=== PATIENT | female | born 1960 | race American Indian/Alaskan Native ===

== ENCOUNTER 2017-04-11 10:03 | Emergency (ER) | payer SELFPAY ==
[2017-04-11 10:41] LABS: Basophils # (Auto) 0.1 K/mm3 (0.0-0.1); Basophils % (Auto) 0.9 % (0.0-1.8); Eosinophils % (Auto) 0.1 % (0.0-4.3); Hematocrit 49.1 % (30.3-42.9); Hemoglobin 16.7 gm/dl (10.1-14.3); Lymphocytes # (Auto) 1.7 K/mm3 (1.2-5.4); Lymphocytes % (Auto) 12.4 % (13.4-35.0); Mean Corpuscular HGB Conc 34 % (30-34); Mean Corpuscular Hemoglobin 34 pg (28-32); Mean Corpuscular Volume 101 fl (79-97); Monocytes # (Auto) 0.8 K/mm3 (0.0-0.8); Monocytes % (Auto) 5.5 % (0.0-7.3); Platelet Count 297 K/mm3 (140-440); Red Blood Count 4.87 M/mm3 (3.65-5.03); Red Cell Distribution Width 14.2 % (13.2-15.2)
[2017-04-11 10:59] LABS: Alanine Aminotransferase 51 units/L (7-56); Albumin 4.6 g/dL (3.9-5); BUN/Creatinine Ratio 15; Blood Urea Nitrogen 12 mg/dL (7-17); Hemolysis Index 19
[2017-04-11] MEDS ORDERED: NACL 0.9% 1000 ML 1,000 ML IV ONE (12:16)
[2017-04-11] MEDS ORDERED: APRESOLINE IV ONE (12:16)
[2017-04-11 12:40] VITALS: BP 166/99
--- NOTE | 2017-04-11 13:03 | Emergency Department Report ---
Chief Complaint: Abdominal Pain Stated Complaint: FLU LIKE SYMPTOMS Time Seen by Provider: 04/11/17 12:12 - HPI History of Present Illness: The patient is a 57-year-old female who presents for evaluation of abdominal pain and GI symptoms. The patient reports abdominal pain for the past 2 days, mild, crampy in quality, and associated with nausea and multiple episodes of nonbilious, nonbloody emesis, and loose watery stools. The patient denies trauma to the abdomen, chest pain, dyspnea, blood in the stools, black tarry stools, recent antibiotic use, travel outside the country, exposure to raw or uncooked seafood, reheated foods, untreated water, unpasteurized dairy, or reptilian pets including lizards, frogs, or snakes. - Exam Vital Signs: Vital Signs 04/11/17 04/11/17 10:09 12:40 Temperature 97.9 F Pulse Rate 90 107 H Respiratory 16 Rate Blood Pressure 185/105 166/99 O2 Sat by Pulse 99 Oximetry MSE screening note: Focused history and physical exam performed. Due to findings the following was ordered: Labs and medications for the patient's symptoms is order. ED Medical Decision Making - Lab Data Result diagrams: 04/11/17 10:22 04/11/17 10:22 ED Disposition for MSE Condition: Stable Instructions: Abdominal Pain (ED) Referrals: PRIMARY CARE, [Primary Care Provider] - 3-5 Days
--- NOTE | 2017-04-11 13:15 | Emergency Department Report ---
Vomiting/Diarrhea - HPI Chief Complaint: Abdominal Pain Stated Complaint: FLU LIKE SYMPTOMS Time Seen by Provider: 04/11/17 12:12 Duration: 2 Days Severity: moderate Nausea/Vomiting Severity: Moderate Diarrhea Severity: Moderate Pain Location: Generalized Pain Severity: Moderate Symptoms: Yes Watery Diarrhea, Yes Able to Tolerate Fluids, No Bloody diarrhea, No Fever, No Recent Unusual Foods, No Recent Untreated Water, No Recent use of Antibiotics, No Family w/ Similar Symptoms, No Contacts w/ Similar Symptoms, No Rash, No Hematuria, No Recent URI Symptoms Other History: This is a 57 y.o. female that presents with abdominal pain with nausea and vomiting for 2 days. Patient states everything is coming out on both ends since Wednesday. She has not been around any sick contacts. She is taking ibuprofen for abdominal pain with no improvement. History of GERD. Denies recent travel, tarry stools, cough, fever, and chest pain. ED Review of Systems ROS: Stated complaint: FLU LIKE SYMPTOMS Other details as noted in HPI Constitutional: denies: chills, fever Respiratory: denies: cough, orthopnea, shortness of breath, SOB with exertion, SOB at rest, stridor, wheezing Cardiovascular: denies: chest pain, palpitations Gastrointestinal: abdominal pain, nausea, vomiting, diarrhea. denies: constipation, hematemesis Neurological: denies: headache, weakness, paresthesias ED Past Medical Hx - Past Medical History Previous Medical History?: Yes Hx Diabetes: No Additional medical history: GERD - Surgical History Past Surgical History?: No - Social History Smoking Status: Current Every Day Smoker Substance Use Type: None - Medications Home Medications: Home Medications Medication Instructions Recorded Confirmed Last Taken Type Ciprofloxacin HCl [Cipro] 500 mg PO BID 7 Days #14 tablet 04/11/17 Unknown Rx Hydrochlorothiazide [Hctz] 12.5 mg PO QDAY #30 capsule 04/11/17 Unknown Rx Losartan [Cozaar] 12.5 mg PO QDAY #30 tablet 04/11/17 Unknown Rx Metoclopramide [Reglan] 10 mg PO TID PRN 5 Days #15 tab 04/11/17 Unknown Rx Vomiting Diarrhea Exam - Exam General: Vital signs noted. No distress. Alert and acting appropriately. HEENT: Yes Moist Mucous Membranes, No Pharyngeal Erythema, No Pharyngeal Exudates, No Rhinorrhea, No Conjuctival Injection, No Frontal Tenderness, No Maxillary Tenderness Neck: No Adenopathy, No Rigidity Lungs: Yes Clear Lung Sounds, Yes Good Air Exchange, No Wheezes, No Stridor, No Cough, No Nasal Flaring, No Retractions, No Use of Accessory Muscles Heart exam: Regular: Yes, Murmur: No, Tachycardia: No Abdomen: Tenderness: Yes (LUQ tenderness on palpation, no guarding or rebound pain), Peritoneal Signs: No, Distention: No, Hyperactive Bowel sounds: No Skin exam: Rash: No, Edema: No, Normal turgor: Yes Neurologic: Alert and oriented, no deficits. Musculoskeletal: Unremarkable. ED Course Vital Signs 04/11/17 04/11/17 10:09 12:40 Temperature 97.9 F Pulse Rate 90 107 H Respiratory 16 Rate Blood Pressure 185/105 166/99 O2 Sat by Pulse 99 Oximetry ED Medical Decision Making - Lab Data Result diagrams: 04/11/17 10:22 04/11/17 10:22 - Radiology Data Radiology results: image reviewed IMPRESSION: 1. Hepatic steatosis and otherwise normal abdomen. 2. Normal pelvis. - Medical Decision Making 57 y.o. female that presents with abdominal pain, nausea and vomiting for 2 days. Patient examined by me, slightly distressed. Blood pressure elevated. Given hydralazine 20 mg IV, normal saline IV 1L bolus. Vitals stable. CT of abdomen and pelvis obtained. Patient informed of Hepatic steatosis and otherwise normal abdomen. 2. Normal pelvis. Obtained CBC, UA, & CMP, WBC elevated. Start cipro and metoclopramide for gastroenteritist. Start HCTZ 12.5 mg po daily and losartan 25 mg po daily for elevated blood pressure. Patient doesn't have PCP. Referred to [facility]. Discharged home. Follow up with [facility] in 48-72 hours. Critical care attestation.: If time is entered above; I have spent that time in minutes in the direct care of this critically ill patient, excluding procedure time. ED Disposition Clinical Impression: Fatty liver, Acute gastroenteritis, Elevated blood-pressure reading without diagnosis of hypertension Disposition: - TO HOME OR SELFCARE Is pt being admited?: No Does the pt Need Aspirin: No Condition: Stable Instructions: Gastroenteritis (ED), Acute Nausea and Vomiting (ED), Abdominal Pain (ED), DASH Eating Plan (ED), Hypertension (ED) Additional Instructions: Increase fluid intake. Take ibuprofen or tylenol for pain. Complete cipro antibiotic as prescribed. Do not drink alcohol while taking antibiotic and 48 hours after completing cipro medication, may cause upset stomach. Follow up with [facility] in 24-72 hours for management of fatty liver and elevated blood pressure. Prescriptions: Ciprofloxacin HCl [Cipro] 500 mg PO BID 7 Days #14 tablet Hydrochlorothiazide [Hctz] 12.5 mg PO QDAY #30 capsule Losartan [Cozaar] 12.5 mg PO QDAY #30 tablet Metoclopramide [Reglan] 10 mg PO TID PRN 5 Days #15 tab PRN Reason: Nausea Referrals: [facility] [Outside] - 3-5 Days [facility] [Outside] - 3-5 Days Forms: Work/School Release Form(ED) Time of Disposition: 14:41 Print Language: ESTONIAN
--- NOTE | 2017-04-11 13:37 | Cat Scan Report ---
CT ABDOMEN AND PELVIS WITHOUT CONTRAST: 04/11/17 10:03:00 CLINICAL:Upper abdominal pain. Nausea and vomiting for 2 days. TECHNIQUE: Volumetric acquisition and 1.25 millimeter scan reconstructions from the lung bases through the pelvis. The study was performed without oral contrast. FINDINGS: Abdomen:Clear lung bases. The liver is diffusely hypodense and measures 18 Hounsfield units compared to 47 Hounsfield units the spleen. However, normal liver size and contour. The gallbladder and bile ducts are normal. Normal stomach, duodenum, pancreas and spleen. The small bowel is normal. Normal kidneys with nondilated renal collecting systems and ureters. No renal calculus, mass or cyst. Normal ascending, transverse and descending colon. The appendix is well limits of normal. No ascites and no pneumoperitoneum. Pelvis: Normal urinary bladder and uterus. Normal ovaries. Normal rectum and sigmoid colon. No adnexal mass or free fluid. IMPRESSION: 1. Hepatic steatosis and otherwise normal abdomen. 2. Normal pelvis.
[2017-04-11] MEDS ORDERED: ZOFRAN ODT PO ONE (13:56)
== END 2017-04-11 15:13 | disposition home or self-care (01) ==
LOC: ED 10:03
DX: K52.9 Noninfective gastroenteritis and colitis, unspecified (principal); K76.0 Fatty (change of) liver, not elsewhere classified; R03.0 Elevated blood-pressure reading, without diagnosis of hypertension; F17.200 Nicotine dependence, unspecified, uncomplicated
CPT/HCPCS: 36415; 74176; 80053; 85025; 93005; 93010; 96361; 96374; 99284; J0360; J7030; Q0162

== ENCOUNTER 2019-02-03 14:56 | Outpatient (CLI) | payer OTHER | END 2019-02-03 14:57 | disposition home or self-care (01) | LOC: LABHHL 14:56 | PROVIDERS: ATTEND Surgery | DX: N63.11 Unspecified lump in the right breast, upper outer quadrant (principal) | CPT/HCPCS: 88305; 88341; 88342 ==

== ENCOUNTER 2019-03-27 06:51 | Day surgery (SDC) | payer MEDICAID ==
[2019-03-23 10:56] LABS: Basophils # (Auto) 0.2 K/mm3 (0.0-0.1); Eosinophils # (Auto) 0.1 K/mm3 (0.0-0.4); Eosinophils % (Auto) 1.1 % (0.0-4.3); Hematocrit 43.3 % (30.3-42.9); Hemoglobin 14.6 gm/dl (10.1-14.3); Lymphocytes # (Auto) 2.3 K/mm3 (1.2-5.4); Lymphocytes % (Auto) 26.6 % (13.4-35.0); Mean Corpuscular HGB Conc 34 % (30-34); Mean Corpuscular Volume 99 fl (79-97); Monocytes # (Auto) 0.5 K/mm3 (0.0-0.8); Platelet Count 356 K/mm3 (140-440); Red Blood Count 4.37 M/mm3 (3.65-5.03); Red Cell Distribution Width 13.8 % (13.2-15.2)
--- NOTE | 2019-03-23 11:04 | Anesthesia Consultation ---
Anesthesia Consult and Med Hx Date of service: 03/27/19 - Airway Anesthetic Teeth Evaluation: Good ROM Head & Neck: Adequate Mental/Hyoid Distance: Adequate Mallampati Class: Class II Intubation Access Assessment: Good - Pulmonary Exam CTA: Yes - Cardiac Exam Cardiac Exam: RRR - Pre-Operative Health Status ASA Pre-Surgery Classification: ASA3 Proposed Anesthetic Plan: General Nerve Block: PEC - Pulmonary Hx Smoking: Yes (OFF/ON SINCE 20'S; DOWN TO 3CIG/DAY SINCE DX) - Cardiovascular System Hx Hypertension: Yes (PT DENIES; BP HAVE STEADILY BEEN ELEVATED; NO PCP) - Central Nervous System Hx Back Pain: Yes (LOWER RIGHT) Hx Psychiatric Problems: No - Other Systems Hx Alcohol Use: Yes (SOCIALLY) Hx Substance Use: Yes (MARIJUANA FOR PAIN- LAST USE JAN 2019) Hx Cancer: Yes
[2019-03-23 12:01] LABS: Alanine Aminotransferase 13 units/L (7-56); Albumin 4.4 g/dL (3.9-5); BUN/Creatinine Ratio 10; Blood Urea Nitrogen 10 mg/dL (7-17); Calcium 9.6 mg/dL (8.4-10.2); Hemolysis Index 14
[~2019-03-27 06:51] MED LIST: CELECOXIB 200 MG CAP PO NR; GABAPENTIN 300 MG CAP PO NR; LACTATED RINGERS 1,000 ML IV SCH; MIDAZOLAM 2 MG/2 ML INJ IV NR; ceFAZolin/Water 2 GM/20 ML 2 GM/20 ML SYRINGE IV NR
[2019-03-27] MEDS ORDERED: BACTERIOSTATIC SODIUM CHLORIDE 0.9% 30 ML VIAL INFILTRATI ONE (07:18)
--- NOTE | 2019-03-27 07:20 | Anesthesia Day of Surgery ---
Anesthesia Day of Surgery - Day of Surgery Patient Examined: Yes Patient H&P Reviewed: Yes Patient is NPO: Yes
[2019-03-27] MEDS ORDERED: LIDOCAINE (1%) 10 MG/1 ML VIAL 20 ML MDV ONE (07:52)
[2019-03-27] MEDS ORDERED: METHYLENE BLUE 50 MG/10 ML AMP ONE (08:24)
[2019-03-27] MEDS ORDERED: BUPIVACAINE/PF (0.25%) 2.5 MG/ML 30 ML VIAL INFILTRATI ONE (08:24)
[2019-03-27] MEDS ORDERED: LIDOCAINE 1%/EPINEPHRINE 1:100,000 VIAL (20 ML) INFILTRATI ONE (08:24)
[2019-03-27] MEDS ORDERED: SODIUM CHLORIDE P/F VIAL 10 ML 10 ML ONE (08:24)
[2019-03-27] MEDS ORDERED: fentaNYL 100 MCG/2 ML INJ IV ONE (08:46)
[2019-03-27] MEDS ORDERED: BUPIVACAINE-EPINEPHRINE/PF 0.5%-1:200,000 (30 ML) VIAL INFILTRATI ONE (08:47)
[2019-03-27] MEDS ORDERED: fentaNYL 100 MCG/2 ML INJ ONE ×2 (08:50→09:08)
[2019-03-27] MEDS ORDERED: LIDOCAINE MPF (2%) 20 MG/1 ML VIAL 5 ML ONE (09:06)
[2019-03-27] MEDS ORDERED: PROPOFOL 200 MG/20 ML VIAL IV ONE (09:06)
[2019-03-27] MEDS ORDERED: ROCURONIUM 50 MG/5 ML INJ IV ONE (09:07)
[2019-03-27] MEDS ORDERED: ONDANSETRON 4 MG/2 ML INJ ONE (09:50)
[2019-03-27] MEDS ORDERED: dexAMETHasone 20 MG/5 ML VIAL ONE (09:50)
[2019-03-27] MEDS ORDERED: HYDROmorphone 1 MG/1 ML INJ ONE (09:51)
[2019-03-27] MEDS ORDERED: WATER FOR IRRIG STERILE 1,500 ML BOTTLE IR ONE (10:14)
[2019-03-27] MEDS ORDERED: PHENYLEPHRINE/NS 1,000 MCG/10 ML SYRINGE (OR USE) IV ONE (10:56)
--- NOTE | 2019-03-27 12:41 | Mammography Report ---
MAMMOGRAPHIC GUIDANCE NEEDLE LOCALIZATION RIGHT BREAST CLINICAL: Right breast malignancy x2 FINDINGS: The right lower outer posterior breast mass was identified with an overlying grid. The skin was cleansed with ChloraPrep and local anesthesia was obtained with a 1% lidocaine solution. Needle was advanced to the mass and clip. A subsequent orthogonal view was obtained and a 7 cm Casillas wire was placed through the needle which was subsequently removed. In a similar manner, a 10 cm Casillas wi re was placed in the right upper outer breast mass and clip. Subsequent CC and ML projections were obtained. These were annotated and sent with the patient to the operating room. Patient tolerated the procedure well and no immediate complications were identified. Subsequent specimen radiographs (2) demonstrate the masses and biopsy markers located centrally withi n the specimens. IMPRESSION: Technically successful mammographically guided wire localization of two right breast malignancies. Signer Name: Holden Stoner MD Signed: 03/27/2019 12:37 PM Workstation Name: [id number]
--- NOTE | 2019-03-27 13:11 | Operative Report ---
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 Patient wanted to proceed with breast conservation and given her breast size, breast conservation was possible and patient understood 2 separate incisions may be needed. She understood if margins were positive, would then recommend proceeding with a total mastectomy. Radiology bracketed both areas of cancer of IDCA breast cancers. She understands the role of adjuvant radiation therapy and Oncotype DX will be obtained by medical oncology. She wished to proceed with the above procedure. Procedure in detail: The patient was taken to radiology for wire placement for localization known area of cancer. Anesthesia placed right pectoral block. Patient was then taken to the operating room. Gen. anesthesia was administered. The right nipple was injected with radioisotope. Right breast and axilla were prepped and draped in the normal sterile operative fashion. The wires were identified. Timeout was performed. Gamma probe was inserted into the axilla. The area of hot spot was identified. A right axillary incision was made with a 15 blade knife with dissection taken down to the subcutaneous tissues. The axillary fascia was opened with the Bovie cautery. 3 SLNs were identified. All remaining counts were less than 10% of the highest count. Lymph node was sent to pathology for permanent processing. Hemostasis was obtained in the right axillary cavity. Axillary cavity was appropriately irrigated and suctioned. Hemostasis was noted. Axillary fascia was approximated and closed using interrupted 3-0 Vicryl and the skin brought together and closed using a running 4-0 Monocryl followed by skin affix. Attention was then taken towards the right breast. Ultrasound was used to preeti the areas of incisions, 2 separate incisions needed given distance of both cancers. Lateral breast incision at the 7:00 position close to IMF was made with a 15 blade knife and dissection taken down to subcutaneous tissues (known cancer at 9:00 position 13 cm FN). First began raising of the superior flap with removal of the wire from the skin with dissection take down to the pectoralis muscle, followed by raising of the inferior flap, medial flap and lateral flap with all flaps taken down to the pectoralis muscle. The breast area of concern was appropriately removed posteriorly from the pectoralis muscle with the aid of the Bovie cautery. The wire was not encountered. Specimen was marked and then sent to pathology and radiology; radiograph specimen with wire and clip present. Breast cavity was irrigated and hemostasis was obtained. The posterior deep breast tissues were approximated and closed using interrupted 3-0 Vicryl. The subcutaneous tissues were approximated and closed using interrupted 3-0 Vicryl followed by closing of the skin with a running 4-0 Monocryl and skin affix. Attention was then taken towards cancer at 11:00 position 12 cm FN. A lateral breast incision at the 11:00 position was made with a 15 blade knife and dissection taken down to subcutaneous tissues. First began raising of the superior flap with dissection take down to the pectoralis muscle, followed by raising of the inferior flap, medial flap and lateral flap with all flaps taken down to the pectoralis muscle. The wire was removed laterally. The breast area of concern was appropriately removed posteriorly from the pectoralis muscle with the aid of the Bovie cautery. The wire was not encountered. Specimen was marked and then sent to pathology and radiology; radiograph specimen with wire and clip present. Breast cavity was irrigated and hemostasis was obtained. The posterior deep breast tissues were approximated and closed using interrupted 3-0 Vicryl. The subcutaneous tissues were approximated and closed using interrupted 3-0 Vicryl followed by closing of the skin with a running 4-0 Monocryl and skin affix. The patient tolerated surgery very well and she was awaken from anesthesia without any complication and transported to PACU in good condition.
--- NOTE | 2019-03-27 13:14 | Short Stay Summary ---
Short Stay Documentation Date of service: 03/27/19 - History H&P: obtained from office - Allergies and Medications Current Medications: Allergies No Known Allergies Allergy (Verified 03/22/19 10:38) Home Medications Medication Instructions Recorded Confirmed Last Taken Type Ibuprofen [Motrin] 800 mg PO Q8HR PRN 03/22/19 03/22/19 Unknown History HYDROcodone/APAP 5-325 [[place] 1 each PO Q6HR PRN #25 tablet 03/27/19 Unknown Rx 5/325] Active Medications Celecoxib (Celebrex) 200 mg PO PREOP NR Stop: 03/27/19 23:59 Last Admin: 03/27/19 07:10 Dose: 200 mg Documented by: Gabapentin (Gabapentin) 600 mg PO PREOP NR Stop: 03/27/19 23:59 Last Admin: 03/27/19 07:10 Dose: 600 mg Documented by: Cefazolin Sodium (Ancef/Sterile Water 2 Gm/20 Ml) 2 gm in 20 mls @ 80 mls/hr IV PREOP NR; Protocol Stop: 03/27/19 23:59 Lactated Ringer's (Lactated Ringers) 1,000 mls @ 100 mls/hr IV DIRECT HERBER Last Admin: 03/27/19 08:45 Dose: 100 mls/hr Documented by: Midazolam HCl (Versed) 2 mg IV PREOP NR Stop: 03/27/19 23:59 Last Admin: 03/27/19 08:47 Dose: 2 mg Documented by: - Brief post op/procedure progress note Date of procedure: 03/27/19 Pre-op diagnosis: Multicentric right breast cancer of upper outer quadrant Post-op diagnosis: same Procedure: Right needle localization partial mastectomy with SLNB Anesthesia: GETA Findings: Wires and clips present; x3 SLNs Surgeon: FER KLINE Estimated blood loss: minimal Pathology: list Specimen disposition: to lab Condition: stable - Disposition Condition at discharge: Good Disposition: DC-01 TO HOME OR SELFCARE Short Stay Discharge Plan Activity: other (no heavy lifting) Diet: regular Wound: keep clean and dry (may shower in 48 hours; no baths; wear breast binder) Follow up with: MARCEL FARIAS MD [Primary Care Provider] - 7 Days FER KLINE MD [Staff Physician] - 7 Days Prescriptions: HYDROcodone/APAP 5-325 [[place] 5/325] 1 each PO Q6HR PRN #25 tablet PRN Reason: Pain
[2019-03-27] MEDS ORDERED: HYDROcodone/ACETAMINOPHEN 5-325 MG TAB PO PRN (13:40)
[2019-03-27 14:12] VITALS: BP 152/77
--- NOTE | 2019-03-27 14:13 | Post Anesthesia Evaluation ---
- Post Anesthesia Evaluation Patient Participated: Yes Airway Patent: Yes Stable Respiratory Function: Yes Temp > 96.8F: Yes Pain Manageable: Yes Adequeate Hydration: Yes Anesthesia Complications: No
== END 2019-03-27 14:18 | disposition home or self-care (01) ==
LOC: OR 06:51
PROVIDERS: ATTEND Surgery
DX: C50.411 Malignant neoplasm of upper-outer quadrant of right female breast (principal); I89.8 Other specified noninfective disorders of lymphatic vessels and lymph nodes; F17.210 Nicotine dependence, cigarettes, uncomplicated; Z79.899 Other long term (current) drug therapy; Z98.41 Cataract extraction status, right eye; Z98.42 Cataract extraction status, left eye; I10 Essential (primary) hypertension; M19.90 Unspecified osteoarthritis, unspecified site; Z72.89 Other problems related to lifestyle; Z80.0 Family history of malignant neoplasm of digestive organs; Z80.42 Family history of malignant neoplasm of prostate
CPT/HCPCS: 19125; 19281; 19282; 19301; 36415; 38525; 38792; 76098; 78800; 80053; 85025; 88307; 88341; 88368; A9541; J0690; J1100; J1170; J2250; J2370; J2405; J2704; J3010; J7120; 64450; 88333; 88342; Q9968

== ENCOUNTER 2019-05-31 05:48 | Observation (INO) | payer MEDICAID ==
[~2019-05-31 05:48] MED LIST changes: -CELECOXIB 200 MG CAP PO NR; -GABAPENTIN 300 MG CAP PO NR; -MIDAZOLAM 2 MG/2 ML INJ IV NR; +WATER FOR IRRIG STERILE 1,500 ML BOTTLE IR ONE; -ceFAZolin/Water 2 GM/20 ML 2 GM/20 ML SYRINGE IV NR
[2019-05-31] MEDS ORDERED: GABAPENTIN 300 MG CAP PO NR (06:00)
[2019-05-31] MEDS ORDERED: CELECOXIB 200 MG CAP PO NR (06:00)
[2019-05-31] MEDS ORDERED: fentaNYL 100 MCG/2 ML INJ IV PRN ×2 (06:00→08:08)
[2019-05-31] MEDS ORDERED: MAGNESIUM OXIDE 400 MG TAB PO SCH (06:00)
[2019-05-31] MEDS ORDERED: MIDAZOLAM 2 MG/2 ML INJ IV NR (06:00)
[2019-05-31] MEDS ORDERED: BACTERIOSTATIC SODIUM CHLORIDE 0.9% 30 ML VIAL INFILTRATI ONE (06:24)
[2019-05-31] MEDS ORDERED: ceFAZolin/Water 2 GM/20 ML 2 GM/20 ML SYRINGE IV NR (07:00)
[2019-05-31] MEDS ORDERED: METHYLENE BLUE 50 MG/10 ML AMP ONE (07:24)
[2019-05-31] MEDS ORDERED: SODIUM CHLORIDE P/F VIAL 10 ML 0 ML ONE (07:24)
[2019-05-31] MEDS ORDERED: dexAMETHasone 4 MG/ML VIAL ONE (07:43)
[2019-05-31] MEDS ORDERED: BUPIVACAINE/PF (0.5%) 5 MG/1 ML 30 ML VIAL INFILTRATI ONE (07:44)
[2019-05-31] MEDS ORDERED: NEOSTIGMINE 10MG/10 ML INJ MDV ONE (07:53)
[2019-05-31] MEDS ORDERED: PHENYLEPHRINE/NS 1,000 MCG/10 ML SYRINGE (OR USE) IV ONE (07:53)
[2019-05-31] MEDS ORDERED: GLYCOPYRROLATE 0.4 MG/2 ML INJ ONE (07:53)
[2019-05-31] MEDS ORDERED: SUCCINYLCHOLINE CHLORIDE 200 MG/10 ML INJ MDV ONE (07:53)
[2019-05-31] MEDS ORDERED: ONDANSETRON 4 MG/2 ML INJ ONE (07:53)
[2019-05-31] MEDS ORDERED: LIDOCAINE PF 100 MG/5 ML (CARDIAC SYRINGE) IV ONE (07:53)
[2019-05-31] MEDS ORDERED: dexAMETHasone 20 MG/5 ML VIAL ONE (07:53)
[2019-05-31] MEDS ORDERED: fentaNYL 250 MCG/5 ML INJ ONE (07:53)
[2019-05-31] MEDS ORDERED: ROCURONIUM 50 MG/5 ML INJ IV ONE (07:53)
[2019-05-31] MEDS ORDERED: propofoL 200 MG/20 ML VIAL IV ONE (07:53)
--- NOTE | 2019-05-31 08:01 | Anesthesia Consultation ---
Anesthesia Consult and Med Hx Date of service: 05/31/19 - Airway Anesthetic Teeth Evaluation: Poor ROM Head & Neck: Adequate Mental/Hyoid Distance: Adequate Mallampati Class: Class III Intubation Access Assessment: Possibly Difficult - Pulmonary Exam CTA: Yes - Cardiac Exam Cardiac Exam: RRR - Pre-Operative Health Status ASA Pre-Surgery Classification: ASA3 Proposed Anesthetic Plan: General Nerve Block: PEC - Pulmonary Hx Smoking: Yes (<1/4 PPD) Hx Respiratory Symptoms: No - Cardiovascular System Hx Hypertension: Yes (previously on meds but none x >3wks) Hx Heart Attack/AMI: No Hx Percutaneous Transluminal Coronary Angioplasty (PTCA): No - Central Nervous System CVA: No Hx Back Pain: Yes (LOWER RIGHT) - Gastrointestinal Hx Gastroesophageal Reflux Disease: No - Endocrine Hx Renal Disease: No Hx Liver Disease: No Hx Insulin Dependent Diabetes: No Hx Non-Insulin Dependent Diabetes: No Hx Thyroid Disease: No - Other Systems Hx Cancer: Yes (breast ca) - Additional Comments Anesthesia Medical History Comments: No hx anesthetic complications.
--- NOTE | 2019-05-31 08:02 | Anesthesia Day of Surgery ---
Anesthesia Day of Surgery - Day of Surgery Patient Examined: Yes Patient H&P Reviewed: Yes Patient is NPO: Yes
[2019-05-31] MEDS ORDERED: WATER FOR IRRIG STERILE 1,500 ML BOTTLE IR ONE (10:16)
[2019-05-31] MEDS ORDERED: ONDANSETRON 4 MG/2 ML INJ IV PRN (11:25)
[2019-05-31] MEDS ORDERED: oxyCODONE /ACETAMINOPHEN 5-325MG TAB PO PRN (11:25)
[2019-05-31] MEDS ORDERED: ACETAMINOPHEN 325 MG TAB PO PRN (11:25)
[2019-05-31] MEDS ORDERED: METOCLOPRAMIDE 10 MG TAB PO PRN (11:25)
[2019-05-31] MEDS ORDERED: diphenhydrAMINE 25 MG CAP PO PRN (11:25)
--- NOTE | 2019-05-31 11:25 | Short Stay Summary ---
Short Stay Documentation Date of service: 05/31/19 - History H&P: obtained from office - Allergies and Medications Current Medications: Allergies No Known Allergies Allergy (Verified 05/23/19 15:10) Home Medications Medication Instructions Recorded Confirmed Last Taken Type Ibuprofen [Motrin] 800 mg PO Q8HR PRN 03/22/19 05/31/19 05/17/19 History Active Medications Celecoxib (Celebrex) 200 mg PO PREOP NR Stop: 05/31/19 23:59 Last Admin: 05/31/19 06:45 Dose: 200 mg Documented by: Fentanyl (Sublimaze) 100 mcg IV ONCE PRN PRN Reason: sedation for nerve block Last Admin: 05/31/19 07:48 Dose: 50 mcg Documented by: Fentanyl (Sublimaze) 50 mcg IV Q5MIN PRN PRN Reason: Pain , Severe (7-10) Stop: 05/31/19 22:00 Gabapentin (Gabapentin) 600 mg PO PREOP NR Stop: 05/31/19 23:59 Last Admin: 05/31/19 06:45 Dose: 600 mg Documented by: Lactated Ringer's (Lactated Ringers) 1,000 mls @ 100 mls/hr IV DIRECT HERBER Last Admin: 05/31/19 07:18 Dose: 100 mls/hr Documented by: Magnesium Oxide (Mag-Ox) 400 mg PO PREOP HERBER Last Admin: 05/31/19 06:45 Dose: 400 mg Documented by: Midazolam HCl (Versed) 2 mg IV PREOP NR Stop: 05/31/19 23:59 Last Admin: 05/31/19 07:48 Dose: 2 mg Documented by: - Brief post op/procedure progress note Date of procedure: 05/31/19 Pre-op diagnosis: Multicentric right breast cancer Post-op diagnosis: same Procedure: Right total mastectomy Anesthesia: GETA Findings: Right total mastectomy with surgical seroma site present Surgeon: FER KLINE Estimated blood loss: 50-100ml Pathology: list (right total mastectomy) Specimen disposition: to lab Condition: stable - Disposition Condition at discharge: Good Disposition: DC/TX-02 SHRT-TRM GEN HOSP IP Short Stay Discharge Plan Activity: other (no heavy lifting) Diet: regular Wound: keep clean and dry (wear breast binder) Follow up with: PRIMARY MD JARRETT [Primary Care Provider] - 7 Days FER KLINE MD [Staff Physician] - 7 Days
--- NOTE | 2019-05-31 11:45 | Operative Report ---
Operative Report Operative Report: Operative Report: Date of Service: May 31, 2019 Preoperative diagnosis: Multicentric right breast cancer of the upper outer quadrant with positive margins Postoperative diagnosis: Same Procedure: Right total mastectomy Surgeon: Anni Valenzuela M.D. Material Specialist: NITISH Gandhi Anesthesia: Gen. Findings: Right total mastectomy with scar noted from prior lumpectomy Complications: None Drains: Right 19 [place] LEIGH drain Estimated blood loss: 50-100 cc Disposition: PACU in good condition Indications for operative procedure: This is a 55-year-old lady with multicentric right breast cancer of the upper outer quadrant; Stage II IDCA grade 2 [id number] ER/UT positive. She recently underwent a right partial mastectomy and sentinel lymph node biopsy with 4 sentinel lymph nodes negative for malignancy, right partial mastectomy with IDCA grade 2 and extensive DCIS present with medial margin positive for DCIS. Recommendations were to proceed with a right total mastectomy given extensive DCIS with positive margin and extensive DCIS found distal to the invasive cancer. Other option of margin vision was discussed as well and patient wished to proceed with a right total mastectomy. Delayed plastics reconstructive surgery was recommended given COVID-19 and plastic surgery contraindicated at this time. Patient understood mastectomy skin flap would be left loose to ensure adequate road supervisor placement. Oncotype DX with no benefit from chemotherapy and adjuvant chemotherapy not recommended. She wished to proceed with the above procedure. Procedure in detail: Anesthesia then placed a right pectoral muslce block. The patient was taken to the operating room and was placed supine. Gen. anesthesia was administered. Timeout was performed. Typical mastectomy incision marking was made. Attention was taken towards the right breast. A skin incision was made with a 10 blade knife and dissection taken down to the subcutaneous tissues. First began raising of the superior flap to the level of the clavicle superiorly and posteriorly to the pectoralis muscle. Scar tissue from prior lumpectomy site was noted around the 11:00 position. Followed by raising of the medial flap to the level of the sternum and posteriorly to the pectoralis muscle. Followed by raising of the lateral flap to the level of the latissimus dorsi muscle and taken down posteriorly. Then proceeded with raising of the inferior flap to the level of the inframammary fold taken posterior to the pectoralis muscle. Scar tissue from prior lumpectomy site was noted around the 8:00 position close to the IMF and seroma cavity noted as well. The mastectomy/breast was removed from the pectoralis muscle without incident. The specimen was appropriately marked and sent to pathology. Additional scar tissue posterior to skin flap from 8:00 lumpectomy was removed as well and sent to pathology. Chest wall cavity was irrigated and suctioned. Hemostasis was obtained. 19 Fr LEIGH drain placed. The subcutaneous tissues were approximated and closed using interrupted 3-0 Vicryl followed by a running 4-0 Monocryl and dermabond.
[2019-05-31] MEDS ORDERED: LACTATED RINGERS 1,000 ML IV SCH (12:00)
--- NOTE | 2019-05-31 14:28 | Post Anesthesia Evaluation ---
- Post Anesthesia Evaluation Patient Participated: Yes Airway Patent: Yes Stable Respiratory Function: Yes Nausea/Vomiting: No Temp > 96.8F: Yes Pain Manageable: Yes Adequeate Hydration: Yes Anesthesia Complications: No
[2019-05-31] MEDS: MORPHINE 2 MG/1 ML INJ IV PRN ×2 (15:12→21:39)
[2019-05-31] MEDS ORDERED: DOCUSATE SODIUM 100 MG CAP PO SCH (22:00)
[2019-06-01] MEDS: MORPHINE 2 MG/1 ML INJ IV PRN (05:02)
--- NOTE | 2019-06-01 07:35 | Progress Note ---
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 1. No acute events overnight. 2. Pain in good control. 3. Right chest incision healing well, skin well perfused; no hematoma; LEIGH drain to bulb suction. 4. LEIGH drain education. 5. OOB to hallway. 6. D/C planning for today. Subjective Date of service: 06/01/19 Principal diagnosis: Stage II multicentric right breast cancer Interval history: POD#1 right total mastectomy Objective - Constitutional Vitals: Vital Signs - 12hr 05/31/19 05/31/19 05/31/19 21:20 21:30 21:39 Temperature 97.7 F Pulse Rate 100 H Pulse Rate [ 80 Right Radial] Respiratory 18 18 18 Rate Blood Pressure Blood Pressure 122/58 [Left] O2 Sat by Pulse 95 Oximetry 05/31/19 06/01/19 06/01/19 22:09 01:54 05:02 Temperature 97.9 F Pulse Rate 77 Pulse Rate [ Right Radial] Respiratory 18 18 18 Rate Blood Pressure 118/66 Blood Pressure [Left] O2 Sat by Pulse 95 Oximetry 06/01/19 05:32 Temperature Pulse Rate Pulse Rate [ Right Radial] Respiratory 18 Rate Blood Pressure Blood Pressure [Left] O2 Sat by Pulse Oximetry General appearance: Present: no acute distress - EENT Eyes: PERRL, EOM intact ENT: hearing intact, clear oral mucosa, dentition normal Ears: bilateral: normal - Neck Neck: supple, normal ROM - Respiratory Respiratory effort: normal - Breasts Breasts: other (right chest incision c/d/i; no hematoma; skin well perfused; LEIGH drain to bulb suction) - Cardiovascular Rhythm: regular Extremities: no ischemia, pulses intact, pulses symmetrical - Gastrointestinal General gastrointestinal: Present: soft, non-tender, non-distended Rectal Exam: deferred - Genitourinary Female genitourinary: deferred - Integumentary Integumentary: clear, warm, dry - Musculoskeletal Musculoskeletal: strength equal bilaterally - Neurologic Neurologic: CNII-XII intact, moves all extremities - Psychiatric Psychiatric: appropriate mood/affect, intact judgment & insight, memory intact, cooperative Medications & Allergies - Medications Allergies/Adverse Reactions: Allergies No Known Allergies Allergy (Verified 05/23/19 15:10) Home Medications: Home Medications Medication Instructions Recorded Confirmed Last Taken Type Ibuprofen [Motrin] 800 mg PO Q8HR PRN 03/22/19 05/31/19 05/17/19 History HYDROcodone/APAP 5-325 [[place] 1 each PO Q6HR PRN #25 tablet 06/01/19 Unknown Rx 5/325] Active Medications: Generic Name Dose Route Start Last Admin Trade Name Bennieq PRN Reason Stop Dose Admin Acetaminophen 650 mg 05/31/19 11:25 Tylenol PO Q6H PRN Pain MILD(1-3)/Fever >100.5/MENON Diphenhydramine HCl 25 mg 05/31/19 11:25 Benadryl PO Q8H PRN Itching Docusate Sodium 100 mg 05/31/19 22:00 05/31/19 21:39 Colace PO 100 mg BID HERBER Administration Fentanyl 100 mcg 05/31/19 06:00 05/31/19 07:48 Sublimaze IV 50 mcg ONCE PRN Administration sedation for nerve block Lactated Ringer's 1,000 mls @ 125 mls/hr 05/31/19 12:00 05/31/19 18:31 Lactated Ringers IV 125 mls/hr DIRECT HERBER Administration Magnesium Oxide 400 mg 05/31/19 06:00 05/31/19 06:45 Mag-Ox PO 400 mg PREOP HERBER Administration Metoclopramide HCl 10 mg 05/31/19 11:25 Reglan PO Q6H PRN Nausea And Vomiting Morphine Sulfate 2 mg 05/31/19 11:27 06/01/19 05:02 Morphine IV 2 mg Q4H PRN Administration Pain, Moderate (4-6) Ondansetron HCl 4 mg 05/31/19 11:25 Zofran IV Q8H PRN N/V unrelieved by Reglan Oxycodone/Acetaminophen 2 tab 05/31/19 11:25 Percocet 5/325 PO Q6H PRN Pain, Moderate (4-6) Sodium Chloride 10 ml 05/31/19 11:25 Sodium Chloride Flush Syringe 10 Ml IV PRN PRN LINE FLUSH
[2019-06-01] MEDS ORDERED: PHENOL 1.4% 177 ML BOTTLE MM PRN (08:00)
[2019-06-01 11:41] VITALS: BP 115/65
== END 2019-06-01 14:00 | disposition home or self-care (01) ==
LOC: OR 05:48 → OB 11:25
PROVIDERS: ADMIT Surgery; ATTEND Surgery
DX: C50.411 Malignant neoplasm of upper-outer quadrant of right female breast (principal)
CPT/HCPCS: 19303; 64450; 88305; 88309; 96374; 96376; G0378; J0330; J0690; J1100; J2001; J2250; J2270; J2370; J2405; J2704; J2710; J3010; J7120; Q9968

== ENCOUNTER 2020-02-19 10:34 | Emergency (ER) | payer MEDICARE ==
[2020-02-19 10:42] VITALS: BP 134/97
== END 2020-02-19 11:42 | disposition left against medical advice (07) ==
LOC: ED 10:34
DX: R10.9 Unspecified abdominal pain (principal); R53.1 Weakness; Z53.21 Procedure and treatment not carried out due to patient leaving prior to being seen by health care provider

== ENCOUNTER 2020-03-29 13:52 | Outpatient (CLI) | payer MEDICARE ==
--- NOTE | 2020-03-29 15:26 | XRay Report ---
CHEST 2 VIEWS INDICATION / CLINICAL INFORMATION: COUGH, MALIGNANT NEOPLASM OF RT BREAST. COMPARISON: None available. FINDINGS: SUPPORT DEVICES: None. HEART / MEDIASTINUM: No significant abnormality. LUNGS / PLEURA: No significant pulmonary or pleural abnormality. No pneumothorax. ADDITIONAL FINDINGS: No significant additional findings. IMPRESSION: 1. No acute findings. Signer Name: Kirill Hastings MD Signed: 03/29/2020 3:21 PM Workstation Name: [id number]
== END 2020-03-29 13:53 | disposition home or self-care (01) ==
LOC: XRAY 13:52
PROVIDERS: ATTEND Internal Medicine Hematology & Oncology
DX: R05 Cough (principal); C50.411 Malignant neoplasm of upper-outer quadrant of right female breast
CPT/HCPCS: 71046

== ENCOUNTER 2020-05-27 11:04 | Outpatient (CLI) | payer MEDICARE ==
--- NOTE | 2020-05-27 15:47 | Mammography Report ---
DIGITAL SCREENING MAMMOGRAM WITH CAD, 05/27/2020 CLINICAL INFORMATION / INDICATION: Routine screening mammography. The patient has a personal history of right breast cancer treated with mastectomy. TECHNIQUE: Digital left 2D mammography was obtained in the craniocaudal and mediolateral oblique pro jections. This examination was interpreted with the benefit of Computer-Aided Detection analysis. COMPARISON: 01/10/2019 FINDINGS: Breast Density: There are scattered areas of fibroglandular density. No dominant mass, suspicious calcifications, or architectural distortion in either breast. IMPRESSION: No mammographic evidence of malignancy. Follow up recommendation: Routine yearly BI-RADS Category 1: Negative. A "normal" or negative report should not discourage follow up or biopsy of a clinically significant f inding. A written summary of these findings will be mailed to the patient. The patient will be entered into a mammography reporting system which will generate a reminder letter for the patient's next appointmen t at the appropriate interval. The [employer] recommends yearly mammograms starting at age 40 and continuing as l juan josé as a woman is in good health. Breast MRI is recommended for women with an approximate 20-25% or greater lifetime risk of breast cancer, including women with a strong family history of breast or ova gui cancer or who have been treated for Hodgkin's disease. Signer Name: Leigha Razo MD Signed: 05/27/2020 3:43 PM Workstation Name: [id number]
== END 2020-05-27 11:05 | disposition home or self-care (01) ==
LOC: SPVWC 11:04
PROVIDERS: ATTEND Surgery
DX: Z12.31 Encounter for screening mammogram for malignant neoplasm of breast (principal)

== ENCOUNTER 2020-08-14 07:23 | Day surgery (SDC) | payer MEDICARE ==
[~2020-08-14 07:23] MED LIST changes: -LACTATED RINGERS 1,000 ML IV SCH; -WATER FOR IRRIG STERILE 1,500 ML BOTTLE IR ONE; +ceFAZolin/STERILE WATER 2 GM/20 ML SYRINGE IV NR
[2020-08-14] MEDS ORDERED: LACTATED RINGERS 1,000 ML ONE (08:48)
[2020-08-14] MEDS ORDERED: ONDANSETRON 4 MG/2 ML INJ IV PRN (09:20)
[2020-08-14] MEDS ORDERED: MAGNESIUM OXIDE 400 MG TAB PO NR (09:20)
[2020-08-14] MEDS ORDERED: HYDROmorphone 1 MG/1 ML INJ IV PRN ×2 (09:20)
[2020-08-14] MEDS ORDERED: ACETAMINOPHEN 325 MG TAB PO NR (09:20)
--- NOTE | 2020-08-14 09:21 | Anesthesia Day of Surgery ---
Anesthesia Day of Surgery - Day of Surgery Patient Examined: Yes Patient H&P Reviewed: Yes Patient is NPO: Yes
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
[2020-08-14] MEDS ORDERED: LACTATED RINGERS 1,000 ML IV SCH (09:30)
[2020-08-14] MEDS ORDERED: propofoL 200 MG/20 ML VIAL IV ONE (09:48)
[2020-08-14] MEDS ORDERED: dexAMETHasone 20 MG/5 ML VIAL ONE (09:48)
[2020-08-14] MEDS ORDERED: fentaNYL 100 MCG/2 ML INJ ONE (09:48)
[2020-08-14] MEDS ORDERED: LIDOCAINE MPF (2%) 20 MG/1 ML VIAL 5 ML ONE (09:48)
[2020-08-14] MEDS ORDERED: CELECOXIB 200 MG CAP PO NR (10:00)
[2020-08-14] MEDS ORDERED: MIDAZOLAM 2 MG/2 ML INJ IV NR (10:00)
[2020-08-14] MEDS ORDERED: HYDROmorphone 1 MG/1 ML INJ ONE (11:13)
[2020-08-14] MEDS ORDERED: PHENYLEPHRINE/NS 1,000 MCG/10 ML SYRINGE (OR USE) IV ONE (11:31)
[2020-08-14] MEDS ORDERED: ESMOLOL 100 MG/10 ML INJ IV ONE (11:31)
[2020-08-14] MEDS ORDERED: SODIUM CHLORIDE 0.9% IRR 1,500 ML BOTTLE IR ONE (11:49)
[2020-08-14] MEDS ORDERED: NITROGLYCERIN 2% OINT 1 GM TP ONE ×2 (12:16→12:19)
--- NOTE | 2020-08-14 12:37 | Short Stay Summary ---
Short Stay Documentation Date of service: 08/14/20 - History H&P: obtained from office - Allergies and Medications Current Medications: Allergies No Known Allergies Allergy (Verified 02/19/20 10:39) Home Medications Medication Instructions Recorded Confirmed Last Taken Type Anastrozole [Arimidex] 1 mg PO DAILY 08/06/20 08/14/20 08/13/20 09:00 History Ergocalciferol (Vitamin D2) 1 tab PO 1XW 08/14/20 08/14/20 08/13/20 09:00 History Active Medications Acetaminophen (Acetaminophen 325 Mg Tab) 650 mg PO ONCE NR Stop: 08/14/20 13:00 Last Admin: 08/14/20 09:30 Dose: 650 mg Documented by: Cefazolin Sodium (Cefazolin/Sterile Water 2 Gm/20 Ml Syringe) 2 gm IV PREOP NR Stop: 08/14/20 23:59 Celecoxib (Celecoxib 200 Mg Cap) 200 mg PO PREOP NR Stop: 08/14/20 20:00 Last Admin: 08/14/20 09:30 Dose: 200 mg Documented by: Hydromorphone HCl (Hydromorphone 1 Mg/1 Ml Inj) 0.25 mg IV Q10MIN PRN PRN Reason: Pain, Moderate (4-6) Stop: 08/14/20 23:00 Hydromorphone HCl (Hydromorphone 1 Mg/1 Ml Inj) 0.5 mg IV Q10MIN PRN PRN Reason: Pain , Severe (7-10) Stop: 08/14/20 23:00 Lactated Ringer's (Lactated Ringers) 1,000 mls @ 125 mls/hr IV DIRECT HERBER Last Admin: 08/14/20 09:15 Dose: 125 mls/hr Documented by: Magnesium Oxide (Magnesium Oxide 400 Mg Tab) 400 mg PO ONCE NR Stop: 08/14/20 13:00 Last Admin: 08/14/20 09:30 Dose: 400 mg Documented by: Midazolam HCl (Midazolam 2 Mg/2 Ml Inj) 2 mg IV PREOP NR Stop: 08/14/20 23:59 Last Admin: 08/14/20 09:35 Dose: 2 mg Documented by: Ondansetron HCl (Ondansetron 4 Mg/2 Ml Inj) 4 mg IV ONCE PRN PRN Reason: Nausea And Vomiting Stop: 08/14/20 13:00 - Brief post op/procedure progress note Date of procedure: 08/14/20 Pre-op diagnosis: Personal history of right breast cancer with excess mastectomy skin Post-op diagnosis: same Procedure: Right mastectomy excess skin flap excision Anesthesia: GETA Findings: Excision of excess mastectomy skin flap Surgeon: FER KLINE Estimated blood loss: minimal Pathology: list Specimen disposition: to lab Condition: stable - Disposition Condition at discharge: Good Disposition: DC- TO HOME OR SELFCARE Short Stay Discharge Plan Activity: other (no heavy lifting) Diet: regular Wound: keep clean and dry (remove gauze on ; record LEIGH drain output; no baths) Follow up with: EFR KLINE MD [Staff Physician] - 7 Days
--- NOTE | 2020-08-14 12:46 | Operative Report ---
Operative Report Operative Report: Operative Report: August 14, 2020 Preoperative diagnosis: Right mastectomy with excess skin, personal history of right breast cancer Postoperative diagnosis: Same Procedure: Right mastectomy excision of excess skin Surgeon: Anni Valenzuela MD Sales Correspondent: Celeste Jorgensen MD Anesthesia: General Findings: Excision of excess right mastectomy skin Drains: 7 Italian flap drain Complications: None EBL: Minimal Disposition: PACU in good condition Disposition: PACU in good condition Indications for operative procedure: This is a 60-year-old lady with a personal history of stage II right breast cancer status post right mastectomy. Patient initially wanted to proceed with delayed plastic reconstructive surgery and later changed her mind. Given she wished to no longer undergo PRS, she wished to proceed with excess mastectomy skin excision. Plastic surgery also did not want to proceed with PRS given current tobacco product usage. Patient wished to proceed with the above procedure. Procedure in detail: Patient was taken to the operating was laid supine. General anesthesia was administered. Right chest was prepped and draped in the normal sterile operative fashion. Timeout was performed. Marking was made at the area of incision for excision of mastectomy skin to leave chest wall flat. A skin incision was made with a 15 blade knife with dissection taken down to the subcutaneous tissues. The Bovie cautery was then used to remove excess skin and excess subcutaneous tissue taken down posteriorly to the pectoralis muscle. Excess skin was then removed posteriorly from the pectoralis muscle. Minimal bleeding was present and hemostasis was obtained. A flat 7 Italian drain was placed. Chest wall cavity was irrigated and suctioned. The subcutaneous tissues were closed with interrupted 3-0 Vicryl followed by closing of the skin with a running 4-0 Monocryl followed by Dermabond. Nitropaste applied to the skin incision given patient's significant tobacco product usage and minimal bleeding present from skin edges; however, skin flaps with good perfusion seen. The patient tolerated surgery very well and was extubated and then transported to PACU in good condition.
[2020-08-14 13:43] VITALS: BP 132/71
--- NOTE | 2020-08-14 15:40 | Post Anesthesia Evaluation ---
- Post Anesthesia Evaluation Patient Participated: Yes Airway Patent: Yes Stable Respiratory Function: Yes Nausea/Vomiting: No Temp > 96.8F: Yes Pain Manageable: Yes Adequeate Hydration: Yes Anesthesia Complications: No Block Receding Appropriately: Not Applicable Patient on Ventilator: No
== END 2020-08-14 14:50 | disposition home or self-care (01) ==
LOC: OR 07:23
PROVIDERS: ATTEND Surgery
DX: C50.911 Malignant neoplasm of unspecified site of right female breast (principal); Z20.822 Contact with and (suspected) exposure to COVID-19; I10 Essential (primary) hypertension; M19.90 Unspecified osteoarthritis, unspecified site; F17.210 Nicotine dependence, cigarettes, uncomplicated; Z79.899 Other long term (current) drug therapy; Z98.41 Cataract extraction status, right eye; Z98.42 Cataract extraction status, left eye; Z72.89 Other problems related to lifestyle; Z98.890 Other specified postprocedural states; Z80.0 Family history of malignant neoplasm of digestive organs; Z80.42 Family history of malignant neoplasm of prostate
CPT/HCPCS: 19301; 88302; J0690; J1100; J1170; J2250; J2370; J2405; J2704; J3010; J7120; U0003

== ENCOUNTER 2021-01-03 11:06 | Outpatient (CLI) | payer MEDICARE ==
[2021-01-03 11:45] LABS: Basophils # (Auto) 0.1 K/mm3 (0.0-0.1); Basophils % (Auto) 0.6 % (0.0-1.8); Eosinophils # (Auto) 0.1 K/mm3 (0.0-0.4); Eosinophils % (Auto) 0.6 % (0.0-4.3); Hematocrit 43.6 % (30.3-42.9); Hemoglobin 14.2 gm/dl (10.1-14.3); Lymphocytes # (Auto) 2.5 K/mm3 (1.2-5.4); Mean Corpuscular HGB Conc 33 % (30-34); Mean Corpuscular Volume 106 fl (79-97); Monocytes # (Auto) 0.4 K/mm3 (0.0-0.8); Monocytes % (Auto) 4.5 % (0.0-7.3); Platelet Count 316 K/mm3 (140-440); Red Cell Distribution Width 14.6 % (13.2-15.2)
[2021-01-03 12:08] LABS: Alanine Aminotransferase 8 units/L (7-56); Albumin 4.5 g/dL (3.9-5); BUN/Creatinine Ratio 16; Blood Urea Nitrogen 11 mg/dL (7-17); Calcium 9.4 mg/dL (8.4-10.2); Chol/HDL Ratio 3.39 %; HDL Cholesterol 76 mg/dL (40-59); Hemolysis Index 8; LDL Cholesterol,Direct 168 mg/dL (50-130)
[2021-01-08 15:10] LABS: Vitamin D, 25-OH, D2 50 ng/mL
== END 2021-01-03 11:07 | disposition home or self-care (01) ==
LOC: LAB 11:06
PROVIDERS: ATTEND Internal Medicine
DX: Z13.29 Encounter for screening for other suspected endocrine disorder (principal); Z00.00 Encounter for general adult medical examination without abnormal findings; R73.9 Hyperglycemia, unspecified; E78.5 Hyperlipidemia, unspecified; E55.9 Vitamin D deficiency, unspecified
CPT/HCPCS: 36415; 80053; 80061; 82306; 83036; 84443; 85025

== ENCOUNTER 2021-05-09 09:38 | Outpatient (CLI) | payer MEDICARE ==
[2021-05-09 10:43] LABS: Chol/HDL Ratio 3.56 %
== END 2021-05-09 09:39 | disposition home or self-care (01) ==
LOC: LAB 09:38
PROVIDERS: ATTEND Internal Medicine
DX: E78.5 Hyperlipidemia, unspecified (principal)
CPT/HCPCS: 36415; 80061

== ENCOUNTER 2021-06-02 12:38 | Outpatient (CLI) | payer MEDICARE ==
--- NOTE | 2021-06-02 14:42 | XRay Report ---
LEFT ANKLE 3 VIEW(S) INDICATION / CLINICAL INFORMATION: PAIN IN LEFT ANKLE. COMPARISON: None available. FINDINGS: BONES / JOINT(S): No acute fracture or subluxation. No significant arthritis. SOFT TISSUES: No significant abnormality. ADDITIONAL FINDINGS: None. IMPRESSION: 1. No acute findings. Signer Name: Leland Barnett MD Signed: 06/02/2021 2:38 PM Workstation Name: [id number]
--- NOTE | 2021-06-02 14:43 | XRay Report ---
LEFT FOOT 3 VIEW(S) INDICATION / CLINICAL INFORMATION: Pain in left foot. COMPARISON: None available. FINDINGS: BONES / JOINT(S): No acute fracture or subluxation. Mild degenerative arthrosis DIP PIP joints SOFT TISSUES: Mild soft tissue swelling dorsal foot. ADDITIONAL FINDINGS: None. IMPRESSION: 1. Mild degenerative arthrosis left foot. 2. Mild dorsal soft tissue swelling without fracture Signer Name: Leland Barnett MD Signed: 06/02/2021 2:38 PM Workstation Name: [id number]
== END 2021-06-02 12:39 | disposition home or self-care (01) ==
LOC: XRAY 12:38
PROVIDERS: ATTEND Internal Medicine
DX: M19.072 Primary osteoarthritis, left ankle and foot (principal)